=== PATIENT | male | born 1940 | race Caucasian/White ===

== ENCOUNTER 2016-05-29 12:25 | Emergency (ER) | payer OTHER ==
[~2016-05-29 12:25] MED LIST: AMLODIPINE PO; BP MED #1 PO; CALCIUM CITRATE PO; CEFT5 OR; CHOLESTEROL MED PO; CHONDROITIN PO; CITRACAL PO; CO Q PO; CO Q-10100 MG PO; EXTINA2 % TOP; EZFE 200200 MG PO; FEVERFEW OR; FLAXSEED OIL1000 MG PO; FLOMAX4 PO; FLUOCIN ACET0.011 EX; GLUCCHONDR PO; GLUCOSAMINE PO; HCTZ25B PO; HYT1 PO; KRILL OIL PO; KRILLOIL PO; KURIC2 % TOP; L-LYSINE500 M1 OR; L-LYSINE500 M1 PO; LOVAZA1 GM PO; MUCINEX600 MG PO; NIACIN 500 PO; NIZORAL A-D1 % TOP; NORV10 PO; PHILLIPS PROBIOTIC PO; POLICOSANOL PO; POTASSIUM GLUCONATE PO; POTASSIUM OTC PO; POTASSIUM95 MG PO; PRILO PO; PRIN10 PO; PROTONIX PO; SAW PALMETTO PO; SLOW FE PO; ULTRAM50 PO; V5 PO; VITAMIN B-122500 MCG SL; VITAMIN C OTC PO; VITAMIN D1000 UNI1 PO; VITC500 PO; WELLBUTRIN PO; WELLSR150 PO; ZYRTEC ALLGY10 MG PO; [UNRECOGNIZED DRUG - OTHER] PO; [UNRECOGNIZED DRUG - OTHER] PO
== END 2016-05-29 13:12 | disposition home or self-care (01) ==
LOC: ER 12:25
PROC: 0HQ0XZZ Repair Scalp Skin, External Approach (ICD-10-PCS; principal; 2016-05-29)
DX: S01.01XA Laceration without foreign body of scalp, initial encounter (principal); Z87.891 Personal history of nicotine dependence; Z88.1 Allergy status to other antibiotic agents; Z88.8 Allergy status to other drugs, medicaments and biological substances; Z79.899 Other long term (current) drug therapy; W10.9XXA Fall (on) (from) unspecified stairs and steps, initial encounter
CPT/HCPCS: 70450; 90471; 90714; 99283